=== PATIENT | female | born 1965 | race Caucasian/White ===

== ENCOUNTER 2017-04-02 16:41 | Emergency (ER) | payer OTHER ==
[~2017-04-02] VITALS: Ht 172.7 cm; Wt 111.4 kg
--- OUTSIDE RECORDS SUMMARY | ~2017-04-02 | XMS ---
Demographics + + + | Address | [address] | | | [place] [address] | + + + | Preferred Language | Unknown | + + + | Marital Status | Unknown | + + + | Buddhist Affiliation | Unknown | + + + | Race | Unknown | + + + | Ethnic Group | Unknown | + + + Author + + + | Author | [facility] | + + + | Organization | [facility] | + + + | Address | [address] | | | [place] [address] | + + + | Phone | | + + + Care Team Providers + + + + | Care Smasher Name | Role | Phone | + + + + Unavailable | Unavailable | + + + + PROBLEMS + + + + + + + + | Type | Condition | ICD9-CM | [id number] | Onset | Condition | SNOMED | | | | Code | Code | Dates | Status | Code | + + + + + + + + | Assessment | Right knee | S83.91XA | | June, | Active | [id number] | | | sprain | | | 2016 | | [id number] | + + + + + + + + ALLERGIES + + + + +--------+ | Substance | Reaction | Event Type | Date | Status | + + + + +--------+ | Penicillin | Unknown | Drug Allergy | June, | Active | + + + + +--------+ SOCIAL HISTORY No smoking Hx information available PLAN OF CARE VITAL SIGNS + + + + | Height | 67.5 in | 2016-06-17 | + + + + | Weight | 245.3 lbs | 2016-06-17 | + + + + | BMI | 37.85 kg/m2 | 2016-06-17 | + + + + | Temperature | 98.8 degrees Fahrenheit | 2016-06-17 | + + + + | Heart Rate | 120 /min | 2016-06-17 | + + + + | Blood pressure systolic | 159 mm Hg | 2016-06-17 | + + + + | Blood pressure diastolic | 90 mm Hg | 2016-06-17 | + + + + MEDICATIONS + + + + + + + +--------+ | Medicati | Instruct | Dosage | Frequenc | Start | End Date | Duration | Status | | on | ions | | y | Date | | | | + + + + + + + +--------+ | Ibuprofe | Orally | 1 tablet | 8h | 17 June, | 18 June, | 10 | Active | | n 800 MG | Three | | | 2016 | 2016 | day(s) | | | | times a | | | | | | | | | day | | | | | | | + + + + + + + +--------+ | Vitamin | Orally | as | 24h | | | | Active | | D-3 5000 | Once a | directed | | | | | | | UNIT | day | | | | | | | + + + + + + + +--------+ | Metformi | Orally | as | 24h | | | | Active | | n HCl | Once a | directed | | | | | | | 500 MG | day | | | | | | | + + + + + + + +--------+ | Lisinopr | Orally | 1 tablet | 24h | | | | Active | | il 10 MG | Once a | | | | | | | | | day | | | | | | | + + + + + + + +--------+ | Fluoxeti | Orally | 1 | 24h | | | | Active | | ne HCl | Once a | capsule | | | | | | | 20 MG | day | in the | | | | | | | | | morning | | | | | | + + + + + + + +--------+ | Aleve | Orally | 1 tablet | 12h | | | | Active | | 220 MG | every 12 | as | | | | | | | | hrs | needed | | | | | | + + + + + + + +--------+ | Simvasta | Orally | 1 tablet | 24h | | | | Active | | tin 20 | Once a | in the | | | | | | | MG | day | evening | | | | | | + + + + + + + +--------+ | Novolin | | | | | | | Active | | N | | | | | | | | + + + + + + + +--------+ | Sabas | Orally | 1 tablet | 24h | | | | Active | | Aspirin | Once a | | | | | | | | 325 MG | day | | | | | | | + + + + + + + +--------+ | GlipiZID | | | | | | | Active | | E 10 MG | | | | | | | | + + + + + + + +--------+ | Lisinopr | Orally | 1 tablet | 24h | | | 30 | Active | | il-[place] | Once a | | | | | day(s) | | | chloroth | day | | | | | | | | iazide | | | | | | | | | 10-12.5 | | | | | | | | | MG | | | | | | | | + + + + + + + +--------+ RESULTS No Results PROCEDURES + + + + + | Procedure | Date Ordered | Related Diagnosis | Body Site | + + + + + | Est Level III | June 17, 2016 | | | | Intermediate | | | | + + + + + IMMUNIZATIONS No Known Immunizations"
== END 2017-04-02 18:16 | disposition home or self-care (01) ==
LOC: ED 16:41
DX: S61.212A Laceration without foreign body of right middle finger without damage to nail, initial encounter (principal); E11.9 Type 2 diabetes mellitus without complications; I10 Essential (primary) hypertension; Z88.0 Allergy status to penicillin; Z88.8 Allergy status to other drugs, medicaments and biological substances; W01.0XXA Fall on same level from slipping, tripping and stumbling without subsequent striking against object, initial encounter
CPT/HCPCS: 99282

== ENCOUNTER 2017-05-13 13:39 | Emergency (ER) | payer OTHER ==
[~2017-05-13] VITALS: Ht 172.7 cm; Wt 111.4 kg
[2017-05-13] MEDS ORDERED: GLIPIZIDE10 MG PO (13:54)
[2017-05-13] MEDS ORDERED: VITAMIN D250000 UNIT PO (13:54)
[2017-05-13] MEDS ORDERED: PROZAC20 MG PO (13:54)
[2017-05-13] MEDS ORDERED: LACTULOSE10 GM/151 PO (13:55)
[2017-05-13] MEDS ORDERED: ZESTRIL10 MG PO (13:55)
[2017-05-13] MEDS ORDERED: METFORMIN HCL500 M2 PO (13:56)
[2017-05-13] MEDS ORDERED: MS CONTIN15 MG PO (13:57)
[2017-05-13] MEDS ORDERED: NOVOLIN 70100 UNIT/1 SUB-Q (13:58)
[2017-05-13] MEDS ORDERED: SIMVASTATIN20 MG PO (13:58)
[2017-05-13] MEDS ORDERED: ROBAXIN-750750 MG PO (13:59)
[2017-05-13] MEDS ORDERED: ULTRAM50 MG PO (14:00)
--- NOTE | 2017-05-13 18:30 | NUR ---
PT WAS INTUBATED AT 1800 AND RT HELPED TRANSPORT PT TO CT FOR A PE SCAN. AFTER GOING BACK TO ROOM AROUND 1830 PT STARTED DESATTING, PT WAS ON 100% ON THE VENT AND 10 OF PEEP, RT TOOK PT OFF VENT AND STARTED AMBU BAGGING PT ON 100% AND PEEP OF 10 WITH SATS NOT IMPROVING OF 76%. DR OVIEDO AT BEDSIDE AND RT SWITCHED OFF WITH ON COMING RT AT AROUND 1930, PT WAS STILL BEING BAGGED WHEN RT'S SWITCHED.
--- NOTE | 2017-05-13 19:57 | EKG ---
[facility] [address] [facility] [place] [address] Signed Normal sinus rhythm Abnormal QRS-T angle, consider primary T wave abnormality Prolonged QT Abnormal ECG No previous ECGs available Confirmed by ARIELLA KOROMA MD ([id number]) on 05/13/2017 7:57:35 PM Electronically Signed By: ARIELLA KOROMA MD 05/13/17 1957 PATIENT NAME: WALLACE WELCH Electrocardiogram DATE OF : 63 PHYSICIAN: ARIELLA KOROMA MD REPORT #: [id number] REPORT IS CONFIDENTIAL AND NOT TO BE RELEASED WITHOUT AUTHORIZATION
--- NOTE | 2017-05-13 21:20 | NUR ---
I WAS CALLED REGARDING THIS PT AT 1800, CODE BLUE. WHEN I ARRIVED THE FAMILY WAS DISTRAUGHT AND THE WAS I THE DOORWAY WATCHING VERY CLOSELY WHAT WAS BEING DONE. THE DAUGHTER WAS SITTING IN THE CORNER OF THE HALLWAY IN TEARS. I BROUGHT THEM TOGETHER A LITTLE DOWN THE [place]AL[place] FROM THE ROOM OF PT AND PRAYED WITH THEM. 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 I KEPT TALKING WITH THE FAMILY ABOUT DIFFERENT THINGS AND HAD SOME SUCCESS KEEPING HIM OUT OF THE WAY OF MEDICAL STAFF. WHEN THE DOCTOR CAME OUT AND GAVE UPDATE THAT PT BEING LIFE FLIGHT TO [facility], MARLENY AND AMPARO (DAUGHTER) BEGAN MAKING CALLS TO GET THINGS ARRANGED TO GO TO [facility]. I WENT TO OFFICE AND GOT A COPY OF LIFE FLIGHT PACK LIST. IT WAS STILL SOME TIME BEFORE LIFE FLIGHT LEFT SO I CONTINUED TO STAY WITH FAMILY. WHEN THEY WERE TOLD THEY COULD SAY THEIR GOODBYES THEY DID SO AND LEFT THE HOSPITAL CAMPUS. I STAYED TO WATCH PT LOADED AND LIFE FLIGHT LEAVE. THIS IS A VERY CLOSE FAMILY AND I PRAY GOOD RECOVERY FOR PT AND PEACE FOR FAMILY, SAFE TRAVELS FOR [place], AND ALSO FOR THE DAUGHTER LEAVING [facility] [place]) FOR THE JOURNEY HERE.
--- NOTE | 2017-05-14 16:13 | EKG ---
[facility] [address] [facility] [place] [address] Signed Atrial fibrillation with rapid ventricular response Left anterior fascicular block ST \T\ T wave abnormality, consider anterior ischemia Abnormal ECG When compared with ECG of 13-MAY-2017 13:42, (Unconfirmed) Significant changes have occurred Confirmed by ARIELLA KOROMA MD ([id number]) on 05/14/2017 4:13:38 PM Electronically Signed By: ARIELLA KOROMA MD 05/14/17 1613 PATIENT NAME: WALLACE WELCH Electrocardiogram DATE OF : 63 PHYSICIAN: ARIELLA KOROMA MD REPORT #: [id number] REPORT IS CONFIDENTIAL AND NOT TO BE RELEASED WITHOUT AUTHORIZATION
--- NOTE | 2017-05-14 16:14 | EKG ---
[facility] [address] [facility] [place] [address] Signed Normal sinus rhythm with sinus arrhythmia Left axis deviation Nonspecific intraventricular block Abnormal ECG When compared with ECG of 13-MAY-2017 17:54, (Unconfirmed) Sinus rhythm has replaced Atrial fibrillation Vent. rate has decreased BY 44 BPM Left anterior fascicular block is no longer present ST elevation now present in Inferior leads ST elevation has replaced ST depression in Lateral leads Confirmed by ARIELLA KOROMA MD ([id number]) on 05/14/2017 4:14:27 PM Electronically Signed By: ARIELLA KOROMA MD 05/14/17 1614 PATIENT NAME: WALLACE WELCH Electrocardiogram DATE OF : 63 PHYSICIAN: ARIELLA KOROMA MD REPORT #: [id number] REPORT IS CONFIDENTIAL AND NOT TO BE RELEASED WITHOUT AUTHORIZATION
== END 2017-05-13 22:05 | disposition short-term general hospital (02) ==
LOC: ED 13:39
PROC: 0T9B70Z Drainage of Bladder with Drainage Device, Via Natural or Artificial Opening (ICD-10-PCS; principal; 2017-05-13)
DX: I46.9 Cardiac arrest, cause unspecified (principal); R07.81 Pleurodynia; J69.0 Pneumonitis due to inhalation of food and vomit; E87.1 Hypo-osmolality and hyponatremia; R09.02 Hypoxemia; I95.9 Hypotension, unspecified; R56.9 Unspecified convulsions; E11.9 Type 2 diabetes mellitus without complications; I10 Essential (primary) hypertension; F32.9 Major depressive disorder, single episode, unspecified; F41.9 Anxiety disorder, unspecified; Z88.0 Allergy status to penicillin; Z79.899 Other long term (current) drug therapy; Z79.84 Long term (current) use of oral hypoglycemic drugs; Z79.4 Long term (current) use of insulin
CPT/HCPCS: 31500; 31720; 36415; 51702; 71045; 71260; 74177; 80053; 82803; 84484; 85025; 85379; 85610; 93005; 93010; 94002; 94799; 96374; 96375; 99285; J0171; J0461; J2060; J2405; J2550; J7120; Q9967